=== PATIENT | female | born 1970 | race Caucasian/White ===

== ENCOUNTER 2016-09-03 08:36 | Observation (INO) | payer OTHER ==
[~2016-09-03] VITALS: Ht 154.9 cm; Wt 66.4 kg
[~2016-09-03 08:36] MED LIST: ABILIFY15 MG PO; AZELASTINE HCL6 ML BOTH EYES; AZO YEAST PO; BELLADONNA-PH16.2 MG PO; CALCIUM 600 +1 EAC9 PO; DONNATAL1 TABLET PO; EXCEDRIN MIGRA1 EAC3 PO; FLUDROCORTISON0.1 M1 PO; GABAPENTIN300 MG PO; GAS-X80 MG PO; GEODON20 MG PO; HYDROXYZINE HCL25 MG PO; IBUPROFEN200 M1 PO; LEVOCETIRIZINE D5 MG PO; LO-DOSE ASPIRIN81 M1 PO; LORAZEPAM0.5 MG PO; MYRBETRIQ25 MG PO; NASONEX17 GM BOTH NARES; NITROSTAT0.4 MG SL; ONE DAILY FOR1 EAC1 PO; PROTONIX40 MG PO; SINGULAIR10 MG PO; VIORELE 28 DAY1 EACH PO; VITAMIN B-122500 MCG SL
[2016-09-03 09:06] LABS: HEMATOCRIT 43.1 % (36.0-46.0); MCH 30.7 PG (29.0-34.0); MCHC 33.4 G/DL (30.0-36.0); MCV 91.9 FL (83-99); MEAN PLAT.VOLUME 9.5 uM^3 (9.5-12.4); PLATELET COUNT 342 K/uL (156-360); RBC DIS.WIDTH-CV 12.5 % (11.8-14.6); RBC DIS.WIDTH-SD 42.4 % (39-53); RED BLOOD COUNT 4.69 M/uL (3.80-5.20); WHITE BLOOD COUNT 6.3 K/uL (4.1-10.2)
[2016-09-03 09:16] LABS: POTASSIUM 4.3 mEq/L (3.7-5.4)
[2016-09-03 09:17] LABS: GLUCOSE 90 mg/dL (70-99)
[2016-09-03 09:19] LABS: ANION GAP 11 MEQ/L (2-14)
[2016-09-03 09:21] LABS: GFR ESTIMATE (CALCULATED) > 59 mL/min/
[2016-09-03 09:22] LABS: UREA NITROGEN (BUN) 9 mg/dL (9-23)
[2016-09-03 09:27] LABS: TROP-I INTERPRETATION NEGATIVE; TROPONIN-I < 0.01 ng/mL (0.0-0.30)
[2016-09-03 09:42] LABS: CHLORIDE 102 mEq/L (99-109); SODIUM 139 mEq/L (136-147)
[2016-09-03] MEDS ORDERED: RANEXA1000 MG PO (11:32)
[2016-09-03] MEDS ORDERED: LIPITOR20 MG PO (11:32)
[2016-09-03] MEDS ORDERED: IMDUR30 MG PO (11:33)
[2016-09-03] MEDS ORDERED: LOPROX 0.77% CR30 GM TP (11:34)
[2016-09-03 16:21] LABS: TROP-I INTERPRETATION NEGATIVE; TROPONIN-I < 0.01 ng/mL (0.0-0.30)
[2016-09-03 16:23] VITALS: BP 151/85
[2016-09-03 19:30] VITALS: BP 132/86
[2016-09-03 21:50] LABS: TROP-I INTERPRETATION NEGATIVE; TROPONIN-I < 0.01 ng/mL (0.0-0.30)
[2016-09-03 23:49] VITALS: BP 104/59
[2016-09-04 03:35] VITALS: BP 101/59
[2016-09-04 07:30] VITALS: BP 111/71
[2016-09-04 12:53] VITALS: BP 125/74
== END 2016-09-04 13:17 | disposition home or self-care (01) ==
LOC: EME 08:36 → EDOF 09:56 → 5WEST 15:24
PROVIDERS: Internal Medicine
DX: R07.89 Other chest pain (principal); I95.1 Orthostatic hypotension; I34.1 Nonrheumatic mitral (valve) prolapse; I49.3 Ventricular premature depolarization; G43.909 Migraine, unspecified, not intractable, without status migrainosus; I25.10 Atherosclerotic heart disease of native coronary artery without angina pectoris; E78.5 Hyperlipidemia, unspecified; K21.9 Gastro-esophageal reflux disease without esophagitis; F41.9 Anxiety disorder, unspecified; F31.9 Bipolar disorder, unspecified; Z87.891 Personal history of nicotine dependence
CPT/HCPCS: 71020; 80048; 84484; 85027; 93005; 99281; 99285; G0378; Q0177

== ENCOUNTER 2017-01-21 08:20 | Emergency (ER) | payer OTHER ==
[~2017-01-21] VITALS: Ht 154.9 cm; Wt 64.2 kg
[~2017-01-21 08:20] MED LIST changes: +IMDUR30 MG PO; +LIPITOR20 MG PO; +LOPROX 0.77% CR30 GM TP; +RANEXA1000 MG PO
[2017-01-21 08:59] LABS: HEMATOCRIT 36.4 % (36.0-46.0); MCH 30.9 PG (29.0-34.0); MCHC 33.2 G/DL (30.0-36.0); MCV 93.1 FL (83-99); MEAN PLAT.VOLUME 9.2 uM^3 (9.5-12.4); PLATELET COUNT 267 K/uL (156-360); RBC DIS.WIDTH-CV 12.6 % (11.8-14.6); RBC DIS.WIDTH-SD 43.6 % (39-53); RED BLOOD COUNT 3.91 M/uL (3.80-5.20); WHITE BLOOD COUNT 5.9 K/uL (4.1-10.2)
[2017-01-21 09:04] LABS: INTER. NORMALIZED RATIO 1.1; PROTHROMBIN TIME 11.7 SEC (10.2-12.9)
[2017-01-21 09:07] LABS: CHLORIDE 105 mEq/L (99-109); PTT 34.1 SEC (25-37); SODIUM 140 mEq/L (136-147)
[2017-01-21 09:08] LABS: GLUCOSE 92 mg/dL (70-99)
[2017-01-21 09:10] LABS: ANION GAP 8 MEQ/L (2-14)
[2017-01-21 09:12] LABS: GFR ESTIMATE (CALCULATED) > 59 mL/min/
[2017-01-21 09:13] LABS: UREA NITROGEN (BUN) 11 mg/dL (9-23)
[2017-01-21 09:20] LABS: TROP-I INTERPRETATION NEGATIVE; TROPONIN-I < 0.01 ng/mL (0.0-0.30)
[2017-01-21 11:50] LABS: TROP-I INTERPRETATION NEGATIVE; TROPONIN-I < 0.01 ng/mL (0.0-0.30)
[2017-01-21 12:44] VITALS: BP 107/76
== END 2017-01-21 12:49 | disposition home or self-care (01) ==
LOC: EME 08:20
PROVIDERS: Emergency Medicine
DX: R07.9 Chest pain, unspecified (principal); G45.9 Transient cerebral ischemic attack, unspecified; R20.8 Other disturbances of skin sensation; Z87.891 Personal history of nicotine dependence; Z79.82 Long term (current) use of aspirin
CPT/HCPCS: 70450; 71020; 80048; 84484; 85027; 85610; 85730; 93005; 99281; 99284

== ENCOUNTER 2017-06-06 08:15 | Emergency (ER) | payer OTHER ==
[~2017-06-06] VITALS: Ht 154.9 cm; Wt 64.3 kg
[2017-06-06 08:56] LABS: BASOPHIL (%) 0.2 % (0-1); EOSINOPHIL (%) 0.2 % (0-5); HEMATOCRIT 40.3 % (36.0-46.0); HEMOGLOBIN 13.7 G/DL (11.9-15.5); IMMATURE GRANULOCYTE (%) 0.3 % (0.0-0.7); LYMPHOCYTE (%) 3.2 % (15-42); LYMPHOCYTE COUNT 0.2 K/uL (1.0-2.8); MCH 30.9 PG (29.0-34.0); MCV 90.8 FL (83-99); MONOCYTE (%) 3.5 % (3-12); MONOCYTE COUNT 0.2 K/uL (0-0.8); NEUTROPHIL (%) 92.6 % (45-76); NEUTROPHIL COUNT 5.8 K/uL (1.8-6.4); PLATELET COUNT 261 K/uL (156-360); RBC DIS.WIDTH-CV 13.1 % (11.8-14.6); RBC DIS.WIDTH-SD 42.7 % (39-53); RED BLOOD COUNT 4.44 M/uL (3.80-5.20); WHITE BLOOD COUNT 6.3 K/uL (4.1-10.2)
[2017-06-06 09:03] LABS: ALBUMIN 4.1 g/dL (3.2-4.8); CHLORIDE 104 mEq/L (99-109)
[2017-06-06 09:04] LABS: POTASSIUM 3.6 mEq/L (3.7-5.4); SODIUM 137 mEq/L (136-147)
[2017-06-06 09:06] LABS: GLUCOSE 145 mg/dL (70-99); TOTAL PROTEIN 6.4 g/dL (6.4-8.3)
[2017-06-06 09:08] LABS: TOTAL BILIRUBIN 0.8 mg/dL (0.0-1.0)
[2017-06-06 09:09] LABS: ALKALINE PHOSPHATASE 45 IU/L (3-129); CREATININE 0.7 mg/dL (0.6-1.3); GFR ESTIMATE (CALCULATED) > 59 mL/min/
[2017-06-06 09:11] LABS: AST (GOT) 26 IU/L (2-34); UREA NITROGEN (BUN) 18 mg/dL (9-23)
[2017-06-06 09:12] LABS: ALT (GPT) 24 IU/L (3-49)
[2017-06-06 09:13] LABS: LIPASE 19 U/L (1.0-51.0)
[2017-06-06 09:37] LABS: APPEARANCE CLEAR ((CLEAR)); BILIRUBIN NEGATIVE; BLOOD NEGATIVE; COLOR YELLOW ((YELLOW)); GLUCOSE (STRIP) NEGATIVE; KETONES NEGATIVE; LEUKOCYTES NEGATIVE; NITRITE NEGATIVE; PROTEIN (STRIP) NEGATIVE; SPECIFIC GRAVITY 1.029 (1.000-1.030); UCUL ADDED? NO
[2017-06-06] MEDS ORDERED: ZOFRAN4 MG PO (13:01)
[2017-06-06 14:23] VITALS: BP 108/53
== END 2017-06-06 14:23 | disposition home or self-care (01) ==
LOC: EME 08:15
PROVIDERS: Emergency Medicine
DX: B34.9 Viral infection, unspecified (principal); I25.2 Old myocardial infarction; J45.909 Unspecified asthma, uncomplicated; F31.9 Bipolar disorder, unspecified; I34.1 Nonrheumatic mitral (valve) prolapse; Z79.82 Long term (current) use of aspirin; Z87.891 Personal history of nicotine dependence; Z88.0 Allergy status to penicillin
CPT/HCPCS: 80053; 81003; 83605; 83690; 85025; 99281; 99284; J2405; J7030